=== PATIENT | male | born 1980 | race Caucasian/White ===

== ENCOUNTER 2019-01-29 18:52 | Emergency (ER) | payer MEDICAID ==
[~2019-01-29] VITALS: Ht 180.3 cm; Wt 79.4 kg
[2019-01-29 19:28] VITALS: BP_SYST 133
--- NOTE | 2019-01-29 19:31 | NUR ---
Pt placed to ER waiting room in stable condition.
--- NOTE | 2019-01-29 19:43 | NUR ---
Pt placed to [facility] 2. Report given to CECE Samson.
--- NOTE | 2019-01-29 19:43 | NUR ---
Cough and runny nose with thick green phlegm x 1 month. Airway patent, respirations even and non-labored, NAD.
--- NOTE | 2019-01-29 19:55 | NUR ---
Titi Sahu, PAC at beside assessing pt.
[2019-01-29] MEDS ORDERED: ALBUTEROL SULFATE 0.083% 2.5 MG/3 ML VIAL.NEB INH ONE (20:15)
--- NOTE | 2019-01-29 20:34 | NUR ---
RT at bedside to perform DuoNeb Tx. Pt not present. Pt significant other states that pt got upset and left ER. Titi Sahu, PAC made aware.
--- NOTE | 2019-01-29 20:34 | NUR ---
Roxanne horner in ED - 01/29/19 at 2041 by ABJ RT at bedside to administer DuoNeb tx.
--- NOTE | 2019-01-29 20:50 | NUR ---
Patient given written and verbal discharge instructions and verbalizes understanding. ER MD discussed with patient the results and treatment provided. Patient in stable condition. ID arm band removed. Rx of Tessalon Perles, Ventolin, Medrol given. Patient educated on pain management and to follow up with PMD. Pain Scale 0/10. Opportunity for questions provided and answered. Medication side effect fact sheet provided.
--- NOTE | 2019-01-29 20:55 | NUR ---
Pt returns to bed. Titi at bedside to discuss POC.
[2019-01-29 20:59] VITALS: BP_SYST 128
--- NOTE | 2019-01-29 20:59 | NUR ---
Patient given written and verbal discharge instructions and verbalizes understanding. ER MD discussed with patient the results and treatment provided. Patient in stable condition. ID arm band removed. I Rx of Tessalon Perles, Ventolin, Medrol given. Patient educated on pain management and to follow up with PMD. Pain Scale 0/10. Opportunity for questions provided and answered. Medication side effect fact sheet provided.
--- NOTE | 2019-01-29 20:59 | NUR ---
Note evens in ED - 01/29/19 at 2104 by SDEDAJ Pt returns to bedSommer Walls at bedside to discuss POC.
== END 2019-01-29 20:59 | disposition home or self-care (01) ==
LOC: SED 18:52
DX: J20.9 Acute bronchitis, unspecified (principal); F17.210 Nicotine dependence, cigarettes, uncomplicated; Z90.89 Acquired absence of other organs
CPT/HCPCS: 99283; J7613

== ENCOUNTER 2020-05-18 00:41 | Emergency (ER) | payer MEDICAID ==
[~2020-05-18] VITALS: Ht 180.3 cm; Wt 79.4 kg
[2020-05-18 00:50] VITALS: BP_SYST 129
--- NOTE | 2020-05-18 00:55 | NUR ---
Patient to ER bed 3 to gown for evaluation. Side rails up. Report given to MITRA ZHAO /DEMETRIO ZHAO.
--- NOTE | 2020-05-18 01:15 | NUR ---
PT A&O X4 C/O OF SKIN RASH ON LEFT SIDE UPPER LIP THAT STARTED TWO WEEKS AGO. PT RASH APPEARS TO BE RED, CIRCULAR SORES ON UPPER LIP. PT STATES HIS RASH ITCHES AND SHAVER. PT HAS TAKEN ANTIBIOTICS BEFORE FOR THE RASH BUT HAS NOT TAKEN ANYTHING RECENTLY OR TODAY.
--- NOTE | 2020-05-18 01:40 | NUR ---
ER Dr. DURBIN at bedside examining patient.
[2020-05-18] MEDS ORDERED: AMOXICILLIN/CLAVULANATE POTASSIUM 875 MG TABLET PO ONE (02:00)
[2020-05-18] MEDS ORDERED: IBUPROFEN 400 MG TABLET PO ONE (02:00)
--- NOTE | 2020-05-18 02:00 | NUR ---
PT MEDICATED FOR PAIN, TOLERATED WELL
--- NOTE | 2020-05-18 02:01 | NUR ---
Patient given written and verbal discharge instructions and verbalizes understanding. ER MD discussed with patient the results and treatment provided. Patient in stable condition. ID arm band removed. Rx of AUGMENTIN AND MOTRIN given. Patient educated on pain management and to follow up with PMD. Pain Scale 4/10. Opportunity for questions provided and answered. Medication side effect fact sheet provided.
[2020-05-18 02:02] VITALS: BP_SYST 129
== END 2020-05-18 02:02 | disposition home or self-care (01) ==
LOC: SED 00:41
DX: L01.09 Other impetigo (principal); F17.200 Nicotine dependence, unspecified, uncomplicated; I10 Essential (primary) hypertension; Z90.49 Acquired absence of other specified parts of digestive tract
CPT/HCPCS: 99283